=== PATIENT | female | born 1955 | race Caucasian/White ===

== ENCOUNTER 2016-09-21 07:57 | Inpatient (IN) | payer OTHER ==
[~2016-09-21] VITALS: Ht 162.6 cm; Wt 120.0 kg
[~2016-09-21 07:57] MED LIST: Bupivacaine Liposome 1.3% 20 mL Inj INFILTRATE ONE; CHOL500011 PO; CeFAZolin 2 Gm/50 mL D5W IV Premix IV ONE; DOCO1CAP3 PO; L.AC1CAP5 PO; Lactated Ringer's 1,000 ML IV ONE; MAGN400T39 PO
[2016-09-21] MEDS ORDERED: CeFAZolin Inj 3 Gm/ D5W 50 mL Bag IV ONE (08:05)
[2016-09-21] MEDS: Vancomycin Inj 1,000 MG in IV Premix 1 EACH IV ONE ×2 (08:16→08:40)
[2016-09-21 08:17] VITALS: BP 116/66; PULSE 81; RESP 16; O2SAT 97
--- NOTE | 2016-09-21 08:38 | PCM.HPANE ---
Patient Data Surgeon Admitting Provider: Attending Provider:Connor Rivero MD Primary Care Physician:Connor Howard MD Other Provider:Isaac Richardson Anesthesia Reason for Visit Left Knee Osteoarthritis Ht/WT & BMI Height (Feet): 5 Height (Inches): 4 Weight (Kilograms): 120 Body Mass Index 26790.00 Allergies Coded Allergies: morphine (Verified Allergy, Unknown, difficulty breathing, 09/16/16) very sensitive to narcotics Past Anesthesia History Anesthesia History: Positive for:: Anesthesia Reactions (Very sensitive to narcotics) Diabetes History Hx Diabetes?: No (monitoring Hgb A1c- lasts known level 08.10) Medications Home Meds Incl Beta Ijeoma: No Reported Medications Cholecalciferol (Vitamin D3) (Vitamin D3)5,000 Unit Tablet5,000 Unit PO DAILY 09/16/16 L.acid/L.casei/B.bif/B.buddy/Fos (Probiotic Blend Capsule)1 Each Capsule1 Each PO DAILY 09/16/16 Magnesium Oxide (Magnesium)400 Mg [id number] Mg PO DAILY 09/16/16 Docosahexanoic Acid/Epa (Fish Oil Concentrate Softgel)1 Each Capsule1 Each PO PRN takes occasionally 09/16/16 History History of ENT Problems?: No HEENT History: Denies:: Abnormal Airway Cataracts Difficult Intubation Dysphagia Glaucoma Hearing Problem Sinus Problem TMJ Denture Type: None Teeth Condition: Within Normal Limits Hx of Heart Problems?: No Cardiovascular History: Denies:: AICD Abdominal Aortic Aneurism Atrial Fibrillation Cardiac Surgery Chest Pain Congestive Heart Failure Coronary Artery Disease Edema Heart Murmur Hypertension Irregular Heartbeat Pacemaker Peripheral Vascular Rheumatic Fever Thrombophlebitis Valvular Heart Disease Hx of Respiratory Problem?: No Respiratory History: Denies:: Oxygen Administration Use of C-PAP Machine Hx Neurologic Problems?: No Neurological History: Denies:: Alzheimer's Disease CVA Dementia Dizziness Headaches Multiple Sclerosis Parkinson's Disease Peripheral Neuropathy Seizures TIA Hx of GI Problems?: Yes Gastrointestinal History: Denies:: Cirrhosis Diverticulitis Gall Bladder Disease Gastroesphageal Reflux Gastrointestinal Bleeding Heartburn Hepatitis Hiatal Hernia Liver Disease Rectal Bleeding Hx of Problems?: No Genitourinary History: Denies:: HX of Hemodialysis Kidney Stones Urinary Tract Infection Female Hx: Denies:: Currently Endometriosis Pelvic Inflammatory Problems with Breasts? Skin History: Denies:: History Skin Disorders? Pressure Ulcers Hx Musculoskeletal Problems?: Yes Musculoskeletal History: Positive for:: Degenerative Joint Joint Replacement (left ankle, right knee) Musculoskeletal Trauma (left knee current admission problem) Osteoarthritis Hx of Psycho/Social Problems?: No Hx Surgeries?: Yes (left ankle, right knee replacement) Hx Any Other Health Problems?: Yes Other History: Denies:: Cancer Thyroid Disease Hx Diabetes: No (monitoring Hgb A1c- lasts known level 5.8 - 2015) Stop/Bang P-Blood Pressure: treated: No B- Body Mass Index > 35 kg/m2: Yes A- Age over 50: Yes N- Neck Large Circumference: Yes G- Gender Male: No ROSINA Risk Assessment: Low Risk, <3 Yes Risk Assessment Category Category 1A: Patient has history of documented sleep apnea, and HAS NOT received any narcotic, sedative or anesthesia administration during this stay. Category 1B: Patient has history of documented sleep apnea, and HAS received any narcotic , sedative or anesthesia administration during this stay Category 2: Patient has SUSPECTED Obstructive Sleep Apnea, and HAS received any narcotic , sedative or anesthesia administration during this stay. Category 3: Patient has SUSPECTED Obstructive Sleep Apnea and HAS NOT received narcotic, sedative or anesthesia administration during this stay. Category 4: Outpatient in Procedural Areas with known sleep apnea or who screen positive for High Risk via the STOP/BANG questionnaire. Exam Exam Vital Signs Vital Signs Date Time Temp Pulse Resp B/P Pulse Ox O2 Delivery O2 Flow Rate FiO2 09/21/16 08:17 35.9 81 16 116/66 97 Room Air General Appearance: Alert HEENT/AIRWAY: MP 2 Lungs: Clear to Auscultation Heart: Exam Unremarkable Meds/Labs/Diagnostics Admission Meds Current Medications Vancomycin/0.9 % Sod Chloride/ Premix (Vancomycin Inj/ IV Premix) 200 ml @ 133.333 mls/hr PREOP ONCE IV Last administered on 09/21/16t 08:16; Start 09/21 at 06:00; Stop 09/21/16 at 07:29; Status DC Plan Impression Patient chart reviewed, patient interviewed and anesthestic plan with risks, benefits, and alternatives discussed, and informed consent obtained. ASA Physical Status: ASA2 Mod Systemic Disease Anesthetic Plan: Regional Block Bene/Risks/Altern/Consents: Yes HP Complete Prior to Induction: Yes Roly Mayo MD Sep 21, 2016 08:38
[2016-09-21] MEDS ORDERED: Tranexamic Acid 100 mg/mL 10 mL Inj ONE (09:22)
[2016-09-21] MEDS ORDERED: 0.9% Sodium Chloride 0 ML ONE (09:22)
[2016-09-21] MEDS ORDERED: Lactated Ringer's 500 ML IV PRN (10:28)
[2016-09-21] MEDS ORDERED: Lactated Ringer's 1,000 ML IV SCH (10:28)
[2016-09-21] MEDS ORDERED: MetoCLOpramide 5 mg/mL 2 mL Inj IVPUSH PRN (10:30)
[2016-09-21] MEDS ORDERED: fentaNYL-PF 50 mCg/mL 2 mL Inj IVPUSH PRN (10:30)
[2016-09-21] MEDS ORDERED: HYDROmorphone 1 mg/mL Inj IVPUSH PRN (10:30)
[2016-09-21] MEDS ORDERED: Phenylephrine 10,000 mCg/mL Inj IVPUSH PRN (10:30)
[2016-09-21] MEDS ORDERED: Dexamethasone 4 mg/mL Inj IVPUSH PRN (10:30)
[2016-09-21] MEDS ORDERED: EPHEDrine Sulfate 50 mg/mL Inj IVPUSH PRN (10:30)
[2016-09-21] MEDS ORDERED: Ondansetron 2 mg/mL 2 mL Inj IVPUSH PRN (10:30)
[2016-09-21] MEDS ORDERED: Gentamicin 40 mg/mL 2 mL Inj IRRIGATION ONE (10:48)
[2016-09-21] MEDS ORDERED: Ondansetron 2 mg/mL 2 mL Inj ONE (10:59)
[2016-09-21] MEDS ORDERED: Propofol 10,000 mCg/mL 20 mL Inj ONE (10:59)
[2016-09-21] MEDS ORDERED: CeFAZolin Inj 3 GM in IV Premix IV ONE (11:01)
[2016-09-21] MEDS ORDERED: Lactated Ringer's 1,000 ML IV ONE (11:15)
[2016-09-21] MEDS ORDERED: Bupivacaine-MPF 0.5% W/EPI 30 mL Inj INFILTRATE ONE (11:30)
[2016-09-21 12:07] VITALS: BP 98/63; PULSE 70; RESP 11; O2SAT 95
--- NOTE | 2016-09-21 12:12 | PCM.ANEP1 ---
Post Anesthesia PACU Phase 1 Assessment Vital Signs sat 93 hr 75 rr12 bp 98/63 t36.8 Vital Signs Date Time Temp Pulse Resp B/P Pulse Ox O2 Delivery O2 Flow Rate FiO2 09/21/16 08:17 35.9 81 16 116/66 97 Room Air Anesthetic Administered: SAB Level of Alertness: Awake, talking OCHOA's with Equal Strength: No Pain: No Nausea or Vomiting: No CV Function & Hydration Stable: No Airway Device: Oxygen Delivery: Room Air Lungs: Clear to Auscultation Dermatome Level: T10 (Umbilicus) PACU Phase 2 Assessment Complications: No Follow up Care: No Patient Instructions Provided: N/A Roly Mayo MD Sep 21, 2016 12:12
[2016-09-21 12:20] VITALS: BP 93/53; PULSE 57; RESP 12; O2SAT 97
[2016-09-21 12:25] VITALS: BP 98/58; PULSE 70; RESP 14; O2SAT 97
--- NOTE | 2016-09-21 12:49 | DRSVH ---
PROCEDURE: X-RAY LEFT KNEE, ONE OR TWO VIEWS ([id number]) INDICATIONS: POST LEFT TKA TECHNIQUE: 2 views of the knee acquired. COMPARISON: None. FINDINGS: Bones: Patient is status post knee joint arthroplasty. Hardware components are in expected position s. Visualized bony structures are intact. Soft tissues: Overlying postoperative changes are noted. IMPRESSION: Normal post operative alignment after left total knee arthroplasty with a surgical drain overlying the operative bed Dictated by: Bill Paredes M.D. on 09/21/2016 at 12:47 Approved by: Bill Paredes M.D. on 09/21/2016 at 12:47
[2016-09-21] MEDS ORDERED: fentaNYL-PF 50 mCg/mL 2 mL Inj ONE (13:01)
[2016-09-21 13:29] VITALS: BP 98/64; PULSE 58; RESP 17; O2SAT 99
--- NOTE | 2016-09-21 13:31 | NUR ---
offered pt video welcome to [facility], pt has refused the video at this time Addendum: 09/21/16 at 1333 by SILVA HERNANDEZ CNA Amended: Links added.
[2016-09-21] MEDS ORDERED: diphenhydrAMINE 25 mg Capsule PO PRN (13:55)
[2016-09-21] MEDS ORDERED: Alum-Mag Hydrox-Simeth 30 mL Suspension PO PRN (13:55)
[2016-09-21] MEDS ORDERED: MetoCLOpramide 5 mg/mL 2 mL Inj IV PRN (13:55)
[2016-09-21] MEDS ORDERED: oxyCODONE-Acetamin 5-325 mg Tablet PO PRN (13:55)
[2016-09-21] MEDS ORDERED: Ondansetron 8 mg ODT Tablet PO PRN (13:55)
[2016-09-21] MEDS ORDERED: LORazepam 0.5 mg Tablet PO PRN (13:55)
[2016-09-21] MEDS ORDERED: Magnesium Hydroxide 10 mL Oral Concentration PO PRN (13:55)
[2016-09-21] MEDS ORDERED: hydrOXYzine Pamoate 25 mg Capsule PO PRN (13:55)
[2016-09-21] MEDS ORDERED: Sodium Biphos-Phos 133 mL Enema RECTAL PRN (13:55)
[2016-09-21] MEDS ORDERED: Ondansetron 2 mg/mL 2 mL Inj IV PRN (13:55)
[2016-09-21] MEDS ORDERED: Ketorolac 15 mg/mL Inj IV SCH (14:30)
[2016-09-21] MEDS: Lactated Ringer's 1,000 ML IV SCH (14:57)
[2016-09-21] MEDS: CeFAZolin Inj 3 GM in IV Premix 1 EACH IV SCH ×2 (14:58→22:33)
[2016-09-21] MEDS: Ketorolac 15 mg/mL Inj IV SCH (17:59)
--- NOTE | 2016-09-21 18:38 | NUR ---
Transfer/Hemovac drain Pt. arrived in room 1007 OSC at about 1240 from OR from a Left total knee replacement. Pt. arrived A&Ox3, hemovoc attached upon arrival, and no c/o pain. Pt. has a swan in place draining to gravity and ALEXANDRE wrap on left leg. Pt. has full sensation as I touched her toes Hemovac started at 1800, draining well. Pt. states mild discomfort around left thigh about 2/10 and tolerable. Pt. is taking PO will with no c/o nausea or vomiting. Passing gas ok.
[2016-09-21 20:30] VITALS: BP 131/85; PULSE 73; RESP 16; O2SAT 97
[2016-09-22] MEDS: Ketorolac 15 mg/mL Inj IV SCH ×2 (00:36→06:15)
[2016-09-22 00:37] VITALS: BP 114/76; PULSE 75; RESP 16; O2SAT 97
--- NOTE | 2016-09-22 00:50 | OP ---
[address] [address] OPERATIVE REPORT PATIENT: LEIA FINLEY : 1955 MR#: [id number] ADMIT: 09/21/2016 JOB ID: [id number] DATE OF SURGERY: 09/21/2016 PREOPERATIVE DIAGNOSIS(ES): Advanced left knee osteoarthritis. POSTOPERATIVE DIAGNOSIS(ES): Advanced left knee osteoarthritis. PROCEDURE: Left total knee arthroplasty. SURGEON: Connor Rivero MD CAPACITOR REPAIRER: Chaparrita Ponce PA-C. Fitting Room Attendant required due to the complexity of the operation. INDICATIONS: This woman has had severe progressive disability symptoms uncontrolled by conservative treatment techniques. She elects to proceed with a total knee replacement. She understands and accepts the potential for risks and complications, which include but is not limited to, infection, thromboembolic, neurovascular events, as well as the potential for arthritis or implant failure. DESCRIPTION OF PROCEDURE: The patient was prepped and draped in usual sterile fashion. An anteromedial approach was made to the knee. The patella was subluxed laterally, cut transversely, sized to a 32. Drill holes were made. The patellar protection plate was utilized. Drill hole placed in the distal femur and a 5 degree valgus distal femoral cut was made. The femur was sized to an E chamfer block fixed in appropriate position. Rotation and chamfer cuts were made. Later, drill holes were made through the trial reduction through the femoral provisional. Tibia was cut with the extramedullary guide. Bone fragments were removed. The tibia was sized to an E tibial component fixed in appropriate position. Rotation and drill holes and stabilization punch were utilized. Trial reduction was performed and a 12 mm poly produced full extension, excellent soft tissue tracking and stability in flexion and extension. All meniscal tissue and osteophytes were removed from the knee. Pressurized lavage was followed by pressurized cementation of the components. Excess cement removed during the curing process. Final construct assembled with a 12 mm poly. The tourniquet was let down. Hemostasis achieved. Deep Hemovac drain was left. Deep tissues were lavaged with dilute Betadine per protocol. Deep closure over Hemovac drain with #2 Quill deep, followed by a 2-0 Vicryl, 3-0, and a 4-0 intracuticular stitch. The patient tolerated the procedure well. There were no complications. Standard postoperative course recommended.
--- NOTE | 2016-09-22 04:50 | NUR ---
Activity Pt reporting pain tolerable throughout night up to 2/10 using Ice to manage pain and scheduled Tordal. Pt has full sensation to left lef, warm extremity and brisk cap refill. Maximilian wrap dressing CDI, Hemovac intact with 120 cc out this shift. Rubi patent and draining clear urine. Pt denies nausea and is passing gas.
[2016-09-22 05:00] VITALS: BP 109/73; PULSE 83; RESP 16; O2SAT 95
[2016-09-22 05:23] LABS: BASOPHILS % (AUTO) 0.3 % (0-3); EOSINOPHILS % (AUTO) 0.9 % (0-5); MONOCYTES % (AUTO) 6.7 % (4-12); Mean Corpuscular Hemoglobin 31.2 pg (27.0-35.0); Mean Corpuscular Volume 93.7 fL (81-100); NEUTROPHILS % (AUTO) 71.5 % (40-74); Platelet Count 245 bil/L (150-400)
[2016-09-22] MEDS: Lactated Ringer's 1,000 ML IV SCH ×2 (06:23→23:15)
[2016-09-22] MEDS ORDERED: Vancomycin Inj 2,000 MG in 0.9% Sodium Chloride 500 ML IV ONE (08:00)
--- NOTE | 2016-09-22 08:38 | PCM.PNORTH ---
Subjective Date of Service: Sep 22, 2016 Visit Information: Reason for Visit Left Knee Osteoarthritis Surgery/Surgery Date L TKR 09/21/16 Post-Op Day # 1 Date of Admission: Sep 21, 2016 at 13:00 Hospital Day # Subjective Patient states she has begun having some discomfort. She is hoping to not take any narcotic pain medication - Dr. Rivero has ordered Toradol and IV Tylenol. She has had a TKA in the past on her other leg and is familiar with the recovery process. She is hoping to work with PT today and do well enough to go home tomorrow. Postop General: No Complaints, No Shortness of Breath Pain Management: PO Objective Exam Objective Sitting up in bed Vital Signs and I/O Vital Sign - Last Date Time Temp Pulse Resp B/P Pulse Ox O2 Delivery O2 Flow Rate FiO2 09/22/16 05:00 37.0 83 16 109/73 95 Room Air Intake and Output 09/21/16 09/21/16 09/22/16 Cumulative From/Thru 15:00 23:00 07:00 09/16/16 15:09 - 09/22/16 06:41 Intake Total 1760 ml 500 ml 706 ml 2966 ml Output Total 799 ml 650 ml 1570 ml 3019 ml Balance 961 ml -150 ml -864 ml -53 ml Intake Oral 500 ml 350 ml 850 ml IV Total 1760 ml 356 ml 2116 ml Output Urine Total 750 ml 650 ml 1450 ml 2850 ml Drainage Total 0 ml 120 ml 120 ml Estimated Blood Loss 49 ml 49 ml Lab & Micro Results Laboratory Tests Test 09/22/16 04:50 White Blood Count 11.7th/mm3 (3.8-10.1) Red Blood Count 3.78mil/mm3 (3.90-5.20) Hemoglobin 11.8g/dL (12.0-15.6) Hematocrit 35.4% (35.0-46.0) Mean Corpuscular Volume 93.7fL (81-100) Mean Corpuscular Hemoglobin 31.2pg (27.0-35.0) Mean Corpuscular Hemoglobin Concent 33.3% (32.0-37.0) Red Cell Distribution Width 13.5% (12.3-15.4) Platelet Count 245bil/L (150-400) Neutrophils (%) (Auto) 71.5% (40-74) Lymphocytes (%) (Auto) 20.3% (14-46) Monocytes (%) (Auto) 6.7% (4-12) Eosinophils (%) (Auto) 0.9% (0-5) Basophils (%) (Auto) 0.3% (0-3) Result Diagram: 09/22/16 0450 General Appearance: Alert, Oriented X3, Cooperative, No Acute Distress Extremities: Distal Pulses Palpable, No Compartment Syndrom Noted Postop Sensory Motor: Distal Motor Intact, Movement in Toes, Distal Sensation Intact, NVI Distally SURGICAL WOUND : Wound Location/Description Perioperative dressings c/d/i Drain Location Body Site: Knee Incision General Appearance: No Direct Observation Wound Drainage Type: Hemovac Activity: Ambulate with PT (WBAT with FWW) Assessment & Plan Impression POD#1 left total knee arthroplasty Problems: Plan Weightbearing: Weightbearing as tolerated with a front wheeled walker DVT prophylaxis: Aspirin 81mg BID x6 weeks Physical therapy for transfers, progressive ambulation, strengthening Wound care: Perioperative dressings will be changed to an island dressing tomorrow Analgesia: Toradol and IV acetaminophen Discharge plan: Discharge home in 1-2 days. Start outpatient physical therapy next week. Follow-up plan: In 2 weeks at [facility] with AMINATA for wound check and at [address] Rivero with x-rays VTE Prophylaxis: Other (Aspirin 81mg BID) Chaparrita Ponce PA-C Sep 22, 2016 08:38
[2016-09-22 09:30] VITALS: BP 107/72; PULSE 86; RESP 18; O2SAT 96
[2016-09-22] MEDS ORDERED: Ketorolac 15 mg/mL Inj IVPUSH PRN (10:25)
[2016-09-22] MEDS: Acetaminophen IV 1,000 mg IV SCH ×2 (11:46→20:30)
--- NOTE | 2016-09-22 12:46 | NUR ---
Social Work- Brief Note/Readiness for Discharge Data: EMR reviewed. Pt is a 61 year old female admitted 09/21/16 for left knee osteoarthritis per H&P. Pt is POD 2. Pt's payor is [facility]. Pt's PCP is Connor Howard MD. SW met with pt at bedside regarding discharge plan, SW role explained. Pt alert and oriented x3. Pt's NOK and DPOA is Coral Wu , . Pt's readmit risk score is not listed at this time. Pt resides in [place] alone where she is independent at baseline. Pt will discharge home with her SO to [place] so that she does not have any steps and her SO can care for her until she is able to move back up to [place]. Pt's nephew Yang will also be living with pt in [place] until November so she will have extra support from him as well. Pt confirms she has a fww, crutches, and a scooter available for use at home. Pt's DPOA is on file in her hard chart. PT has seen pt, upon first assessment 09/21 pt's knee buckled and pt was not able to ambulate. Per pt today, PT worked with pt and she reports being able to ambulate down the [place]odes. Pt anticipated to continue to progress to safe discharge to [facility]' home in [place] via POV. SW will continue to follow. Assessment: Pt who will require outpt PT and is independent at baseline. Plan: Pt anticipated to progress to discharge to home in [place] before returning to her home in [place]. Pt has DME necessary for discharge. SW will continue to follow. Ashley Oconnor, AUTOMATIC DRILL OPERATOR
[2016-09-22 13:03] VITALS: BP 122/79; PULSE 88; RESP 14; O2SAT 97
--- NOTE | 2016-09-22 15:34 | NUR ---
Pain/Activity/Rubi Pt rates pain between 2-3/10. Pain controlled adequately with IV Tylenol and toradol. Pt up and ambulating with PT and using BSC. Rubi d/c'd and pt voiding with no s/s of retention.
--- NOTE | 2016-09-22 17:05 | NUR ---
Hemovac Pt's hemovac became detached while up to the bathroom. PA notified and hemovac was d/c'd intact. Pt also had 150cc out of hemovac during day shift. PA notified.
[2016-09-22 17:30] VITALS: BP 121/81; PULSE 87; RESP 16; O2SAT 97
[2016-09-22 20:10] VITALS: BP 115/73; PULSE 102; RESP 16; O2SAT 99
[2016-09-23] MEDS: Acetaminophen IV 1,000 mg IV SCH (03:16)
--- NOTE | 2016-09-23 03:38 | NUR ---
Pain Pt reporting pain from -11/12 and increasing with activity. Pt is taking 2 [place] q4 hrs and Vistaril intermittently. Pt reporting this to be effective but pain does come back after 4 hrs. Full sensation to right leg, brisk cap refill and warm extremities. Denies nausea. Pt is up to BR with SBA and FWW, tolerating activity well. Pt on 2-3L O2 via NC overnight to keep O2 sats above 92% with CPOx. Addendum: 09/23/16 at 0357 by PHOEBE OLSEN RN Charted on wrong pt
--- NOTE | 2016-09-23 03:58 | NUR ---
Activity Pt reporting left knee/thigh pain 1-2/10 and tolerable. Pt only taking scheduled IV Tylenol and applying ice to site which has been "most helpful." Pt has been up to BR with SBA and FWW, tolerating activity well.
[2016-09-23 05:18] VITALS: BP 121/76; PULSE 94; RESP 16; O2SAT 97
--- NOTE | 2016-09-23 07:21 | PCM.PNORTH ---
Subjective Date of Service: Sep 23, 2016 Visit Information: Reason for Visit Left Knee Osteoarthritis Surgery/Surgery Date L TKR 09/21/16 Post-Op Day # 2 Date of Admission: Sep 21, 2016 at 13:00 Hospital Day # Subjective Patient feels that she is doing quite well. She states she does not have compression stockings. She has physical therapy scheduled to start tomorrow. She would like to be discharged today. She is not taking narcotic medications. She states she does not tolerate them very well. She has a [employer] machine at home. She has walker and crutches. She feels that she is ready for discharge. Postop General: No Complaints, No Shortness of Breath Pain Management: PO Objective Exam Objective Patient is seen sitting up in bed Vital Signs and I/O Vital Sign - Last Date Time Temp Pulse Resp B/P Pulse Ox O2 Delivery O2 Flow Rate FiO2 09/23/16 05:18 36.7 94 16 121/76 97 Room Air Intake and Output 09/22/16 09/22/16 09/23/16 Cumulative From/Thru 15:00 23:00 07:00 09/16/16 15:09 - 09/23/16 05:24 Intake Total 1580 ml 1000 ml 5546 ml Output Total 1510 ml 850 ml 5379 ml Balance 70 ml 150 ml 167 ml Intake Oral 840 ml 800 ml 2490 ml IV Total 740 ml 200 ml 3056 ml Output Urine Total 1400 ml 850 ml 5100 ml Drainage Total 110 ml 230 ml Estimated Blood Loss 49 ml # Bowel Movements 1 0 1 Result Diagram: 09/22/16 0450 General Appearance: Alert, Oriented X3, Cooperative, No Acute Distress Extremities: Distal Pulses Palpable, No Compartment Syndrom Noted, Thigh & Calf Soft/Nontender Postop Sensory Motor: Distal Motor Intact, Movement in Toes, NVI Distally SURGICAL WOUND : Wound Location/Description Left knee: Surgical dressing is removed. Steri-Strips are intact. There is minimal amount of dried serous drainage on the bandage. There is no erythema or drainage present. The drain site is clean and dry. The wound is cleansed with hydrogen peroxide and dressed with Silverlon dressing, and Island dressing. Calf is soft and nontender. Drain Location Body Site: Knee Activity: Ambulate with PT (WBAT with FWW) Catheters: None Assessment & Plan Impression POD #2 status post left total knee arthroplasty Problems: Plan Weightbearing: Weightbearing as tolerated with a front wheeled walker DVT prophylaxis: Aspirin 81mg BID x6 weeks Physical therapy for transfers, progressive ambulation, strengthening Wound care: PA changed dressing today to an island dressing Analgesia: Toradol and IV acetaminophen Discharge plan: Discharge home today. Start outpatient physical therapy tomorrow. Discharge instructions are reviewed with the patient. She has no prescriptions. She will use Tylenol and lshm-myt-[id number] anti-inflammatories for analgesia. Follow-up in 2 weeks and [facility] with AMINATA and at [address] Rivero, with x-ray Pain Management: Tylenol, toradol VTE Prophylaxis: SCDs, Other (Aspirin 81mg BID) Resuscitation Status: CPR: Attempt Resuscitation RonanCourtney Handy PA-C Sep 23, 2016 07:20
--- NOTE | 2016-09-23 07:59 | PCM.DIORTH ---
Ortho Discharge Instruction Date of Service: Sep 23, 2016 Dates of Hospitalization Date of Hospital Admission Sep 21, 2016 at 13:00 Providers Admitting Physician: Connor Rivero MD Primary Care Physician: Connor Howard MD Attending Physician: Connor Rivero MD Diet Discharge Diet: No restrictions Activity Discharge Activity-General: Be up and about, Balance rest and activity, Elevate & ice extremity Left Lower Extremity: Weight Bearing as tolerated Range of motion restrictions: No restrictions. Your knee will be sore, but it is good to push your motion with both bending and straightening every day Discharge Assist Device: Front Wheeled Walker Dressing and Incisional Care Discharge Dressing Care: Keep dressing clean, dry & intact Discharge Hygiene: May shower (see instructions below), DO NOT soak incision under water, NO bathtub, hot tub or whirlpool Additional Instructions Discharge Instructions Weightbearing: Weightbearing as tolerated with a front wheeled walker DVT prophylaxis: Aspirin 81mg BID x6 weeks [facility] outpatient Physical therapy tomorrow for range of motion, progressive ambulation, strengthening Wound care: Leave current dressing in place for 2-3 days. Showering: Cover wound for showering for the next 2 weeks. Analgesia: Acetaminophen and phlz-brb-tydnccm NSAID She has no prescriptions. Follow Up Plan Follow Up Plan Follow-up in 2 weeks and [facility] with AMINATA and at [address] Rivero, with x-ray Call your provider for: Fever, Chills, Shortness of breath, Vomitting, Drainage at incision, Wound redness, Increasing pain Courtney Schofield PA-C Sep 23, 2016 07:59
[2016-09-23] MEDS ORDERED: Acetaminophen PO (08:01)
[2016-09-23] MEDS ORDERED: ASPI-973 PO (08:01)
--- NOTE | 2016-09-23 08:04 | PCM.DC.ORT ---
Discharge Summary Date of Service: Sep 23, 2016 Date of Hospital Admission: Sep 21, 2016 at 13:00 Date of Surgery: Sep 21, 2016 Date of Discharge: Sep 23, 2016 Reason for Hospitalization: Left knee arthritis Procedures Performed: Left total knee arthroplasty Hospital Course: The patient was admitted to the hospital on 09/21/2016 and underwent the above procedure. Antibiotic prophylaxis consisting of Ancef and vancomycin. The surgeon was Dr. Rivero. Patient tolerated the procedure well and was transferred to recovery room in stable condition. Patient had physical therapy to work on ambulation and transfers. Weightbearing as tolerated with walker. Pain was managed with Toradol and Tylenol. Patient does not tolerate narcotics. DVT prophylaxis: Aspirin 81 mg twice a day. Patient progressed well with physical therapy, ambulating 200 feet and on POD-2 was discharged home. Follow-up: at [facility] 2 weeks postop for wound check and at [address] Rivero with x-ray Diagnosis at Time of Discharge Status post left total knee arthroplasty Problems: Disposition: Discharged home in stable condition Additional Information Follow-up at [facility] in 2 weeks with AMINATA, and at [address] Rivero with x-ray Discharge Instructions: Weightbearing: Weightbearing as tolerated with a front wheeled walker DVT prophylaxis: Aspirin 81mg BID x6 weeks [facility] outpatient Physical therapy tomorrow for range of motion, progressive ambulation, strengthening Wound care: Leave current dressing in place for 2-3 days. Showering: Cover wound for showering for the next 2 weeks. Analgesia: Acetaminophen and kwpy-rck-ochkuav NSAID She has no prescriptions. ([Acetaminophen]) 325 MG TABLET 650 MG PO Q3H PRN PRN For Pain Max 4,000 mg per day Aspirin (Aspirin) 81 Mg Tablet 81 MG PO BID Cholecalciferol (Vitamin D3) (Vitamin D3) 5,000 Unit Tablet 5,000 UNIT PO DAILY Docosahexanoic Acid/Epa (Fish Oil Concentrate Softgel) 1 Each Capsule 1 EACH PO PRN takes occasionally L.acid/L.casei/B.bif/B.buddy/Fos (Probiotic Blend Capsule) 1 Each Capsule 1 EACH PO DAILY Magnesium Oxide (Magnesium) 400 Mg Tablet 400 MG PO DAILY Courtney Schofield PA-C Sep 23, 2016 08:04
--- NOTE | 2016-09-23 10:23 | NUR ---
Social Work- Discharge Data: EMR reviewed. Pt is a 61 year old female admitted 09/21/16 for left knee osteoarthritis per H&P. Pt is POD 3. Pt to discharge today. SW met with pt at bedside regarding discharge plan. Pt is excited for discharge, pt's SO and transport home was in the room during this conversation. Pt denies any questions or concerns related to discharge. PT worked with pt and she ambulated 250 feet. Pt will discharge home with her SO to [place] then transition home to [place], transport via POV. No discharge needs identified. Assessment: Pt who will require outpt PT and is independent at baseline. Plan: Pt has progressed to ambulating 250 feet. Pt will discharge home with her SO to [place] then transition home to [place], transport via POV. No discharge needs identified. DAVION Benitez
--- NOTE | 2016-09-23 11:43 | NUR ---
discharged home with friend, whom she will be staying with while she is rehabilitating. Pt eating/drinking well, ambulates independently with FWW, incision has Island dressing which is C/D/I, she may remove dressing in 2-3 days. f/u appt with PAC in 2 weeks and in [address] Rivero with Xrays. Pt was able to repeat back discharge instructions. Suleiman mcgowan applied to pt prior to discharge
== END 2016-09-23 11:00 | disposition home or self-care (01) | DRG 470 ==
LOC: SAS 07:57 → OSC 13:00
PROVIDERS: ADMIT Orthopaedic Surgery; ATTEND Orthopaedic Surgery
PROC: 0SRD0J9 Replacement of Left Knee Joint with Synthetic Substitute, Cemented, Open Approach (ICD-10-PCS; principal; 2016-09-21 10:00)
DX: M17.12 Unilateral primary osteoarthritis, left knee (principal)